=== PATIENT | female | born 1955 | race Caucasian/White ===

== ENCOUNTER 2017-09-02 14:51 | Emergency (ER) | payer BC ==
[2017-09-02 14:59] VITALS: RESP 18; TEMP 97.8
--- NOTE | 2017-09-02 15:49 | XR ---
EXAMINATION TYPE: XR Hip RT and AP Pelvis DATE OF EXAM: 09/02/2017 COMPARISON: NONE HISTORY: Right hip pain TECHNIQUE: A single AP view of the pelvis is obtained. Two views of the right hip are obtained. FINDINGS: The pelvic ring is intact. Proximal right femur and hip joint are intact. Sacroiliac joints appear normal. IMPRESSION: Negative pelvis and right hip exam..
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
[2017-09-02 16:14] VITALS: BP 152/78; PULSE 67
== END 2017-09-02 16:14 | disposition home or self-care (01) ==
LOC: EC 14:51
DX: M25.551 Pain in right hip (principal); R51 Headache; E78.5 Hyperlipidemia, unspecified; I10 Essential (primary) hypertension; F32.9 Major depressive disorder, single episode, unspecified; Z98.890 Other specified postprocedural states; Z86.14 Personal history of Methicillin resistant Staphylococcus aureus infection; Z87.891 Personal history of nicotine dependence; Z79.1 Long term (current) use of non-steroidal anti-inflammatories (NSAID); Z79.899 Other long term (current) drug therapy; W01.198A Fall on same level from slipping, tripping and stumbling with subsequent striking against other object, initial encounter
CPT/HCPCS: 73502; 99283

== ENCOUNTER → 2017-09-11 | Outpatient (CLI) | payer BC ==
--- NOTE | 2017-09-11 12:32 | XR ---
Lumbosacral spine HISTORY: Trauma, low back pain 5 views of the lumbosacral spine CT 01/20/2011 There is depression deformity of the superior endplate of L3, loss of height of approximately 25% whi ch appears chronic. Bone mineralization is reduced. Loss of disc height present L4-5 with associated vacuum phenomenon. There is multilevel spondylosis. Sclerosis present in the posterior elements of th e lumbar spine. No evident spondylolysis or spondylolisthesis. Mild levoscoliosis is centered at L2. Surgical clips present in the pelvis. IMPRESSION: Osteoporotic compression fractures superior endplate of L3 thought likely to be chronic. Degenerative disc disease, facet arthropathy, osteopenia, scoliosis. MRI may be of benefit.
== END | disposition home or self-care (01) ==
LOC: RADXRYALE 10:54
PROVIDERS: ATTEND Internal Medicine
DX: M51.37 Other intervertebral disc degeneration, lumbosacral region (principal); M46.86 Other specified inflammatory spondylopathies, lumbar region; M85.88 Other specified disorders of bone density and structure, other site; M41.9 Scoliosis, unspecified
CPT/HCPCS: 72110

== ENCOUNTER 2017-11-25 14:05 | Emergency (ER) | payer BC ==
[2017-11-25 14:11] LABS: Glucose,Whole Blood 215 mg/dL (75-99)
[2017-11-25 14:13] VITALS: RESP 18
[2017-11-25] MEDS ORDERED: ALBUTEROL NEBULIZED 2.5 MG/3 ML INHALATION STA (14:47)
[2017-11-25 14:59] LABS: Appearance,Urine Clear (Clear); Bilirubin,Urine Negative (Negative); Blood,Urine Negative (Negative); Color,Urine Light Yellow; Glucose,Urine (UA) 4+ (Negative); Leukocyte Esterase,Urine Negative (Negative); Nitrite,Urine Negative (Negative); PH, Urine 6.5 (5.0-8.0); Protein,Urine Negative (Negative); Specific Gravity,Urine 1.003 (1.001-1.035); Urobilinogen,Urine <2.0 mg/dL (<2.0)
[2017-11-25 15:05] LABS: Ketones,Urine 2+ (Negative)
[2017-11-25 15:07] LABS: Basophils % (A) 1 %; Eosinophils # (A) 0.2 k/uL (0-0.7); Eosinophils % (A) 3 %; HCT 40.8 % (34.0-46.0); HGB 13.4 gm/dL (11.4-16.0); Lymphocytes # (A) 1.2 k/uL (1.0-4.8); Lymphocytes % (A) 18 %; MCH 28.9 pg (25.0-35.0); MCHC 32.8 g/dL (31.0-37.0); MCV 88.1 fL (80.0-100.0); Mean Platelet Volume 7.2; Monocytes # (A) 0.3 k/uL (0-1.0); Monocytes % (A) 4 %; Neutrophils # (A) 4.7 k/uL (1.3-7.7); Neutrophils % (A) 72 %; Platelet Count 247 k/uL (150-450); RBC 4.63 m/uL (3.80-5.40); WBC 6.6 k/uL (3.8-10.6)
[2017-11-25] MEDS ORDERED: SODIUM CHLORIDE 0.9% 1,000 ML IV ONE (15:07)
[2017-11-25 15:10] LABS: Anion Gap 10 mmol/L; Blood Urea Nitrogen 5 mg/dL (7-17); Calcium 9.9 mg/dL (8.4-10.2); Carbon Dioxide 25 mmol/L (22-30); Chloride 99 mmol/L (98-107); Glucose 235 mg/dL (74-99); Potassium 4.8 mmol/L (3.5-5.1); Sodium 134 mmol/L (137-145)
[2017-11-25] MEDS ORDERED: SODIUM CHLORIDE 0.9% 1,000 ML IV SCH (15:15)
--- NOTE | 2017-11-25 16:03 | XR ---
EXAMINATION TYPE: XR chest 2V DATE OF EXAM: 11/25/2017 COMPARISON: 02/12/2016 HISTORY: Cough TECHNIQUE: Frontal and lateral views of the chest are obtained. FINDINGS: There is no heart failure nor confluent pneumonic infiltrate. Costophrenic angles are ashok r. There are chest leads. Bony thorax is intact. IMPRESSION: No active cardiopulmonary disease. No change. Normal heart.
[2017-11-25] MEDS ORDERED: MAG HYDROX/AL HYDROX/SIMETH 30 ML, HYOSCYAMINE ELIXIR 10 ML, CIMETIDINE HCL 300 MG, LID... PO STA ×4 (16:06)
[2017-11-25 16:08] LABS: Glucose,Whole Blood 215 mg/dL (75-99)
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
[2017-11-25] MEDS ORDERED: LABETALOL 5 MG/ML VIAL MDV IVP STA (16:38)
[2017-11-25] MEDS ORDERED: LEVOFLOXACIN 500 MG TAB PO STA (17:01)
[2017-11-25 17:45] VITALS: BP 187/77; PULSE 80
[2017-11-25 17:48] VITALS: TEMP 97.7
== END 2017-11-25 17:47 | disposition home or self-care (01) ==
LOC: EC 14:05
DX: J40 Bronchitis, not specified as acute or chronic (principal); E78.5 Hyperlipidemia, unspecified; I10 Essential (primary) hypertension; F32.9 Major depressive disorder, single episode, unspecified; Z87.891 Personal history of nicotine dependence; Z86.14 Personal history of Methicillin resistant Staphylococcus aureus infection; Z83.3 Family history of diabetes mellitus; Z79.4 Long term (current) use of insulin; Z79.899 Other long term (current) drug therapy
CPT/HCPCS: 36415; 71020; 80048; 81003; 82009; 85025; 94640; 96361; 96374; 99284

== ENCOUNTER 2018-06-14 13:16 | Emergency (ER) | payer BC ==
[2018-06-14 13:23] VITALS: RESP 18
[2018-06-14] MEDS ORDERED: SODIUM CHLORIDE 0.9% 1,000 ML IV ONE (13:56)
[2018-06-14] MEDS ORDERED: ceFAZolin IN SWFI 2 GM/20 ML SYRINGE IVP STA (13:56)
[2018-06-14] MEDS ORDERED: SODIUM CHLORIDE 0.9% 1,000 ML IV SCH (14:00)
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
[2018-06-14 15:19] LABS: Basophils % (A) 1 %; Eosinophils # (A) 0.2 k/uL (0-0.7); Eosinophils % (A) 7 %; HCT 32.7 % (34.0-46.0); Lymphocytes % (A) 29 %; MCHC 33.6 g/dL (31.0-37.0); MCV 86.4 fL (80.0-100.0); Mean Platelet Volume 7.1; Monocytes # (A) 0.2 k/uL (0-1.0); Monocytes % (A) 6 %; Neutrophils # (A) 1.9 k/uL (1.3-7.7); Neutrophils % (A) 57 %; Platelet Count 169 k/uL (150-450); RBC 3.78 m/uL (3.80-5.40); RDW 13.2 % (11.5-15.5); WBC 3.4 k/uL (3.8-10.6)
[2018-06-14 15:21] LABS: ALT 29 U/L (9-52); AST 26 U/L (14-36); Alkaline Phosphatase 105 U/L (38-126); Anion Gap 7 mmol/L; Blood Urea Nitrogen 5 mg/dL (7-17); Calcium 9.5 mg/dL (8.4-10.2); Carbon Dioxide 27 mmol/L (22-30); Chloride 101 mmol/L (98-107); Glucose 117 mg/dL (74-99); Sodium 135 mmol/L (137-145); Total Bilirubin 0.6 mg/dL (0.2-1.3); Total Protein 6.7 g/dL (6.3-8.2)
[2018-06-14 15:28] LABS: Potassium 4.6 mmol/L (3.5-5.1)
[2018-06-14] MEDS ORDERED: SULFAMETH-TMP DS STARTER PACK 2 TAB BTL PO STA (15:53)
[2018-06-14 15:55] VITALS: BP 141/67
[2018-06-14] MEDS ORDERED: ACET/COD 300 MG/30 MG STARTER PACK 6 TAB BTL PO STA (16:13)
[2018-06-14 16:39] VITALS: PULSE 70; TEMP 98.1
== END 2018-06-14 16:39 | disposition home or self-care (01) ==
LOC: EC 13:16
DX: L03.311 Cellulitis of abdominal wall (principal); J45.909 Unspecified asthma, uncomplicated; E11.9 Type 2 diabetes mellitus without complications; E78.5 Hyperlipidemia, unspecified; I10 Essential (primary) hypertension; G43.909 Migraine, unspecified, not intractable, without status migrainosus; F32.9 Major depressive disorder, single episode, unspecified; Z86.14 Personal history of Methicillin resistant Staphylococcus aureus infection; Z87.891 Personal history of nicotine dependence; Z79.4 Long term (current) use of insulin; Z79.82 Long term (current) use of aspirin; Z79.899 Other long term (current) drug therapy
CPT/HCPCS: 36415; 80053; 85025; 87040; 87070; 87205; 87077; 87186; 99284; 96374; 96361 ×2; J0690

== ENCOUNTER 2021-11-30 23:17 | Emergency (ER) | payer BC, MEDICARE ==
[2021-11-30 23:42] LABS: Glucose,Whole Blood 77 mg/dL (75-99)
[2021-11-30 23:47] VITALS: BP 165/81; RESP 20
[2021-12-01 00:11] LABS: Glucose,Whole Blood 97 mg/dL (75-99)
[2021-12-01 00:49] LABS: Glucose,Whole Blood 221 mg/dL (75-99)
[2021-12-01 00:51] LABS: Basophils % (A) 1 %; Eosinophils # (A) 0.2 k/uL (0-0.7); Eosinophils % (A) 3 %; HCT 39.2 % (34.0-46.0); HGB 12.9 gm/dL (11.4-16.0); Lymphocytes # (A) 1.3 k/uL (1.0-4.8); Lymphocytes % (A) 21 %; MCH 30.5 pg (25.0-35.0); MCV 92.2 fL (80.0-100.0); Mean Platelet Volume 7.6; Monocytes # (A) 0.4 k/uL (0-1.0); Monocytes % (A) 7 %; Neutrophils % (A) 67 %; Platelet Count 196 k/uL (150-450); RBC 4.25 m/uL (3.80-5.40); RDW 13.2 % (11.5-15.5); WBC 6.1 k/uL (3.8-10.6)
[2021-12-01 01:13] LABS: ALT 29 U/L (4-34); AST 32 U/L (14-36); African American GFR (CKD) >90 (>60 ml/min/1.73 sqM); Albumin 3.8 g/dL (3.5-5.0); Alkaline Phosphatase 83 U/L (38-126); Anion Gap 11 mmol/L; Blood Urea Nitrogen 8 mg/dL (7-17); Carbon Dioxide 21 mmol/L (22-30); Chloride 99 mmol/L (98-107); Glucose 73 mg/dL (74-99); Non-African American GFR(CKD) >90 (>60 ml/min/1.73 sqM); Potassium 3.9 mmol/L (3.5-5.1); Sodium 131 mmol/L (137-145); Total Bilirubin 0.6 mg/dL (0.2-1.3); Total Protein 6.2 g/dL (6.3-8.2)
[2021-12-01 01:26] LABS: Glucose,Whole Blood 300 mg/dL (75-99)
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
[2021-12-01 02:42] VITALS: PULSE 77; TEMP 98
== END 2021-12-01 02:08 | disposition home or self-care (01) ==
LOC: EC 23:17
DX: E11.649 Type 2 diabetes mellitus with hypoglycemia without coma (principal); J45.909 Unspecified asthma, uncomplicated; E78.5 Hyperlipidemia, unspecified; I10 Essential (primary) hypertension; F32.A Depression, unspecified; Z79.4 Long term (current) use of insulin; Z79.82 Long term (current) use of aspirin; Z90.89 Acquired absence of other organs; Z20.822 Contact with and (suspected) exposure to COVID-19
CPT/HCPCS: 36415; 80053; 85025; 87635; 99285

== ENCOUNTER → 2022-09-13 | Outpatient (CLI) | payer MEDICARE ==
--- NOTE | 2022-09-13 16:02 | XR ---
EXAMINATION TYPE: XR chest 2V DATE OF EXAM: 09/13/2022 3:58 PM COMPARISON: Chest radiographs from 11/25/2017. TECHNIQUE: XR chest 2V Frontal and lateral views of the chest. CLINICAL INDICATION:Female, 67 years old with history of Z01.818 PRE SURGICAL; FINDINGS: Lungs/Pleura: There is no evidence of pleural effusion, focal consolidation, or pneumothorax. Pulmonary vascularity: Unremarkable. Heart/mediastinum: Cardiomediastinal silhouette is unremarkable. Musculoskeletal: No acute osseous pathology. Dextrocurvature of the thoracic spine. IMPRESSION: No acute cardiopulmonary disease/process.
[2022-09-13 23:55] LABS: ALT 18 U/L (8-44); AST 16 U/L (13-35); African American GFR (CKD) 103.9 (60.0-200.0); Albumin 4.3 g/dL (3.8-4.9); Albumin/Globulin Ratio 1.95 (1.60-3.17); Alkaline Phosphatase 87 U/L (41-126); BUN/Creat Ratio 10.43 Ratio (12.00-20.00); Blood Urea Nitrogen 7.3 mg/dL (9.0-27.0); Calcium 8.9 mg/dL (8.7-10.3); Carbon Dioxide 28.1 mmol/L (20.0-27.5); Chloride 99 mmol/L (96-109); Globulin 2.2 g/dL (1.6-3.3); Glucose 184 mg/dL (70-110); Non-African American GFR(CKD) 89.7 (60.0-200.0); Sodium 135 mmol/L (135-145); Total Bilirubin <0.15 mg/dL (0.30-1.20); Total Protein 6.5 g/dL (6.2-8.2)
== END | disposition home or self-care (01) ==
LOC: LABPAT 15:03
PROVIDERS: ATTEND Orthopaedic Surgery Orthopaedic Surgery of the Spine
DX: Z01.818 Encounter for other preprocedural examination (principal); M41.9 Scoliosis, unspecified
CPT/HCPCS: 71046; 80053; 87070; 93005

== ENCOUNTER → 2022-09-29 | Outpatient (CLI) | payer MEDICARE | END | disposition home or self-care (01) | LOC: LABPAT 12:34 | PROVIDERS: ATTEND Orthopaedic Surgery Orthopaedic Surgery of the Spine | DX: Z53.9 Procedure and treatment not carried out, unspecified reason (principal) ==

== ENCOUNTER 2022-10-04 06:07 | Observation (INO) | payer MEDICARE ==
[2022-09-28 10:56] VITALS: BMI 35.9
[2022-09-29 13:31] LABS: INR 0.9 (<1.2); Partial Thromboplastin Time 22.7 sec (22.0-30.0); Prothrombin Time 9.6 sec (9.0-12.0)
[2022-09-29 14:07] LABS: Basophils # (A) 0.1 k/uL (0-0.2); Basophils % (A) 1 %; Eosinophils # (A) 0.3 k/uL (0-0.7); Eosinophils % (A) 6 %; HCT 40.7 % (34.0-46.0); HGB 13.3 gm/dL (11.4-16.0); Lymphocytes # (A) 1.4 k/uL (1.0-4.8); Lymphocytes % (A) 25 %; MCH 29.4 pg (25.0-35.0); MCHC 32.7 g/dL (31.0-37.0); MCV 89.9 fL (80.0-100.0); Mean Platelet Volume 7.9; Monocytes # (A) 0.3 k/uL (0-1.0); Monocytes % (A) 6 %; Neutrophils # (A) 3.3 k/uL (1.3-7.7); Neutrophils % (A) 61 %; Platelet Count 252 k/uL (150-450); RBC 4.53 m/uL (3.80-5.40); RDW 13.1 % (11.5-15.5); WBC 5.5 k/uL (3.8-10.6)
[2022-09-29 17:54] LABS: Appearance,Urine Clear (Clear); Bilirubin,Urine Negative (Negative); Blood,Urine Negative (Negative); Color,Urine Yellow (Yellow); Ketones,Urine Negative (Negative); Nitrite,Urine Negative (Negative); PH, Urine 7.5 (5.0-8.0); Specific Gravity,Urine 1.004 (1.001-1.030); Urobilinogen,Urine 0.2 (0.2,1.0)
[2022-09-29 18:00] LABS: Bacteria,Urine None Seen /HPF (None Seen)
[~2022-10-04 06:07] MED LIST: LIDOCAINE 1% (10MG/ML) FOR IV START INTRADERMA PRN; ONDANSETRON 4 MG/2 ML VIAL IVP ONE; ceFAZolin 1,000 MG in SODIUM CHLORIDE 0.9% IRRIGATIO 1,000 ML IRRIGATION PRN
[2022-10-04] MEDS: LACTATED RINGERS 1,000 ML IV SCH (07:10)
[2022-10-04 07:13] LABS: Glucose,Whole Blood 207 mg/dL (70-110)
[2022-10-04] MEDS ORDERED: PROPOFOL 10 MG/ML 20 ML VIAL IV ONE (07:32)
[2022-10-04] MEDS ORDERED: fentaNYL (PF) 50 MCG/ML 2 ML AMP ONE (07:32)
[2022-10-04] MEDS ORDERED: KETAMINE 10 MG/ML 20 ML VIAL ONE (07:32)
[2022-10-04] MEDS ORDERED: ROCURONIUM 10 MG/ML (5 ML VIAL) IV ONE (07:32)
[2022-10-04] MEDS ORDERED: MIDAZOLAM 2 MG/2 ML VIAL ONE (07:32)
[2022-10-04] MEDS ORDERED: LIDOCAINE 2% INJ 20 MG/ML (2 ML VIAL) ONE (07:32)
[2022-10-04] MEDS ORDERED: SUCCINYLCHOLINE CHLORIDE 200 MG/10 ML VIAL IV ONE (07:32)
[2022-10-04] MEDS ORDERED: ePHEDrine 50 MG/ML 1 ML VIAL ONE (07:32)
[2022-10-04] MEDS ORDERED: HYDROmorphone (PF) 1 MG/ML ONE (07:32)
[2022-10-04] MEDS ORDERED: PHENYLEPHRINE-0.9% NACL SYG 1,000 MCG/10 ML SYRINGE ONE (07:32)
[2022-10-04] MEDS ORDERED: GLYCOPYRROLATE 0.2 MG/ML 2 ML VIAL ONE (07:32)
[2022-10-04] MEDS ORDERED: NEOSTIGMINE 1 MG/ML 10 ML VIAL ONE (07:32)
[2022-10-04] MEDS ORDERED: LIDOCAINE 0.5%-EPI 1:200,000 50 ML VIAL SQ ONE (07:37)
[2022-10-04] MEDS ORDERED: THROMBIN (BOVINE) 5,000 UNIT VIAL TOPICAL ONE (07:37)
[2022-10-04] MEDS ORDERED: GELATIN SPONGE,ABSORB (LARGE) 1 EACH SPONGE TOPICAL ONE (07:37)
[2022-10-04] MEDS ORDERED: LACTATED RINGERS 1,000 ML IV ONE (09:00)
[2022-10-04] MEDS ORDERED: bisacodyL 10 MG SUPP RECTAL PRN (11:35)
[2022-10-04] MEDS ORDERED: ONDANSETRON 4 MG/2 ML VIAL IVP PRN (11:35)
[2022-10-04] MEDS ORDERED: NA PHOS,M-B/NA PHOS,DI-BA 133 ML ENEMA RECTAL PRN (11:35)
[2022-10-04] MEDS ORDERED: BENZOCAINE/MENTHOL LOZENG 1 EACH LOZENGE MUCOUS MEM PRN (11:35)
[2022-10-04] MEDS ORDERED: MAGNESIUM HYDROXIDE 2,400 MG/10 ML CUP PO PRN (11:35)
--- NOTE | 2022-10-04 11:45 | P.OP ---
Date of Procedure: 10/04/22 Preoperative Diagnosis: Degenerative scoliosis, severe spinal stenosis L3 4 L4 5, degenerative disc disease, facet arthritis, neurogenic claudication, lower extremity radiculopathy Postoperative Diagnosis: Same Anesthesia: GETA Pathology: none sent Condition: stable Disposition: PACU Description of Procedure: DESCRIPTION OF PROCEDURE(S): BRIEF OPERATIVE NOTE Preoperative Diagnosis: Degenerative scoliosis, severe spinal stenosis L3 4 L4 5, degenerative disc disease, facet arthritis, neurogenic claudication, lower extremity radiculopathy Postoperative Diagnosis: Same Procedure: Laminectomy and decompression L3 [address] navigation aided Minimally invasive Posterior lateral decompression and facet fusion L3 4 L4 5 Minimally invasive Transforaminal lumbar interbody fusion for a 360 fusion L3 4 L4 5 Use of cement augmentation through fenestrated screws at L3-L4 and L4 5 for improved screw fixation Discectomy for decompression L3 4 L4 5 Placement of interbody graft L3 4 L4 5 Use of computer navigation for fusion L3 4 and 5 Local autogenous bone grafting Aspiration of bone marrow from the vertebral body pedicle L3 and left Use of bone graft extenders Surgeon: Dr. Rogel Ela Teacher: Vince ANGUIANO who is present throughout the entire the case persistence during positioning, dissection, exposure, visualization, and all crucial elements of the case as well as closure. Anesthesia: General anesthesia per Estimated blood loss: Approximately 400 mL, with 225 given back through Cell Saver Complications: None apparent Components implanted: K2M minimally invasive [place] pedicle screw system withscrews measuring 6.5 mm in diameter to rods one Clark interbody cage and 1 peek interbody cage with 10 mL of osteo amp bio4 bone graft substitute and 30 mL of the BX bone fibers to supplement the local autogenous bone graft and bone marrow aspirate Disposition: To recovery room in good stable condition. OPERATIVE INDICATIONS The patient has had severe issues at their lower extremity in her lower back over the past several years with significant worsening over the past several months. Over the past few months the patient had pain at their back and their lower extremities. The patient had been having worsening pain with her degenerative scoliosis and severe disc degeneration and severe spinal stenosis with neurogenic claudication. The patient is having severe radicular symptoms at their lower extremity with weakness. The patient is having significant pain in their back. They are unable to obtain any comfort. We did aggressive conservative treatment with medications therapy and interventional pain management however thery were not having any relief. The patient has been through conservative treatment. We discussed various treatment options including surgery, and the patient wishes to proceed with surgery We discussed the risk, patient's alternatives and benefits of surgery including but not limited to, risk of bleeding risk of infection, risk of need for further surgery, risk of decreased, loss of motion, muscle function, malunion nonunion, hardware failure, nerve damage, paralysis, heart attack, blindness and . They understood issues with the current pandemic and the possibility of exposure. OPERATIVE SUMMARY After discussing all the risks, patient alternatives and benefits at length, the patient elected to proceed with surgical intervention, signed informed consent, and presented for their procedure. The patient was seen and examined in the preoperative holding area and the surgical site was marked. The patient was given antibiotics and brought to the operating room. The patient was sedated and intubated by anesthesia in standard fashion. The patient was positioned on to the operating room table in a prone position on the appropriate frame which was well-padded and well molded. We were careful to pad any bony prominences and pressure points. We were careful to maintain the patient's cervical spine and good neutral alignment and position throughout. The patient was prepped and draped in a normal standard fashion. An appropriate timeout and keystone protocol performed. We were able to proceed with the surgery. The local wound area was infiltrated with local anesthetic. Over the right iliac crest I was able to make small stab incisions and establish a guidepin screw fixation to the iliac crest 2. I was able place the computer referencing device over the guidepins to establish an appropriate reference point for the Ziem CT navigation. We then were able to place patient in an appropriate drape and do a navigation spin for visualization and 3-D reconstruction of the lumbar spine. I was able utilize C-arm guidance and navigation to establish appropriate position over the pedicles bilaterally at t he appropriate levels at L3 L4 L5. With the appropriate levels confirmed was able to make small incisions over the appropriate pedicle sites bilaterally. Utilizing the computer navigation device I was able to establish bony landmarks at the right iliac crest for a bony reference point for the navigation device. I was able to establish a Jamshidi needle over the lateral aspect of the pedicle and advanced the trocar into the pedicle being careful not to breech superiorly inferiorly medially or laterally using computer navigation device. Position was confirmed regularly with AP and lateral images on C-arm and with the computer navigation device at the appropriate levels bilaterally. I was able to establish the trocar into the pedicle appropriately into the posterior aspect of the vertebral body bilaterally at the appropriate levels. This was done at each of the pedicle positions and each of the vertebrae. At the superior vertebrae I was able to take approximately 25 mL of bone aspiration for use later in the case to supplement the allograft and autograft bone. I was able place the guidewire into the trocar and into the vertebral body appropriately under C-arm guidance. Of note at each of the levels the bone was found to be significant way soft and is worried about significant osteopenia and screw fixation. With this I felt that we would have better screw purchase and screw fixation with using fenestrated screws with bony cement out mentation. Dissection was taken down over the wire to the appropriate starting position for the screw placed. The appropriate length screw was chosen, the fenestrated screw was then threaded over the guidewire and screwed appropriately into the pedicle and vertebral body under C-arm guidance in excellent alignment and position with good bony purchase. This is done at each of the screw sites at the appropriate levels at L3-L4 and L5. Their position was checked and found to have excellent position at L3-L4 and L5 and there were seated well in the appropriate alignment. With his accomplish we then prepared cement mixture and 12 was prepared appropriately we threaded the appropriate insertion devices and we were able to push cement through the screws through the fenestrations and into the vertebral bodies at L3 L4 L5 bilaterally. The cement was well contained within the vertebral bodies and gave excellent fixation of the screws. This was done with C-arm guidance. With the screws intact I extended the incision to connect the screw hole sites on the most symptomatic side on the right. I dissected down to establish access over the pars and lamina to the base of the spinous process. I was able to expose the facet joint. The capsule the facet was taken down and showed some facet arthrosis at the joint. I was able to use a combination of curettes and Kerrison rongeurs and a high-speed drill to take down the facet joint and do a facetectomy. I was able get excellent foraminal decompression and central decompression with undermining across midline to perform a laminectomy centrally and contralaterally. I started at L4 5 and then moved L3 4. I was able get good central decompression. There had been severe central and bilateral foraminal stenosis which was remedied with decompression. The ligamentum flavum was taken down to further decompress centrally and at bilateral neural foramen. I was able to expose the disc space and visualize the traversing nerve root. Note was made of some disc protrusion and disc herniation that was abutting the traversing nerve root at the level causing further compression of the nerve root. I was able to establish a annulotomy at the appropriate level protecting soft tissue and neural structures. Note was made of some disc desiccation at the disc both at L4 5 and L3 4 with severe disc loss.. I performed a complete discectomy with accommodation of curettes and rasps and scrapers. I was able get good endplate preparation at the disc space. I sized for the appropriate size interbody spacer protecting the soft tissue and neural structures. The wound was copiously irrigated and suctioned dry. There is no evidence of any dural tear or leak. I was able to pack the disc space with local autogenous bone graft as well as a small amount of bone graft which was also placed into the interbody cage itself. Protecting the soft tissue structures and neural structures I was able place the interbody cage in good alignment and good position with good fit and fill at the interbody space. Position was confirmed with C-arm guidance. Good hemostasis maintained. There is no evidence of any dural tear or leak. The wound was irrigated and suctioned dry. With the hardware intact, intraoperative C-arm imaging was again taken which showed good alignment and position of the hardware at the appropriate levels at L3 4 and L4 5. We were then able to measure, contour and place the rods and appropriate hardware bilaterally. I was able to place capcrews, tighten them down, and torque them with the torque screwdriver appropriately. With this intact I was able to place the local autogenous bone graft with additional bone graft enhancer as necessary into the posterior lateral gutters over the decorticated transverse processes and facet joints on the contralateral side. The remainder of the bone graft was placed over the facet joint on the contralateral side after taking down the facet joint capsule. With the bone graft intact, a stable construct, and good decompression at the appropriate levels, we were able to proceed with closure. Good hemostasis was maintained. There is no evidence of dural tear or leak. The fascia was closed for a watertight closure. he subcuticular tissue was closed with absorbable suture. The wound was cleaned and dried and dressed with the appropriate dressing. The drapes were broken down. The patient was gently rolled back onto their hospital bed being careful to maintain their cervical spine and good neutral alignment and position. They were woken up by anesthesia, extubated, and brought to the recovery room in good stable condition. The patient will be admitted to the hospital for appropriate postoperative care, medical management and monitoring. We will continue to follow them closely about the postoperative course.
[2022-10-04] MEDS ORDERED: SODIUM CHLORIDE 0.9% 1,000 ML IV ONE ×2 (11:52)
[2022-10-04] MEDS: HYDROmorphone 0.5 MG/0.5 ML SYRINGE IVP PRN ×6 (12:02→21:39)
--- NOTE | 2022-10-04 13:12 | FL ---
EXAMINATION TYPE: FL guidance operating room DATE OF EXAM: 10/04/2022 HISTORY: Fluoroscopy time 28 seconds of fluoroscopy provided. IMPRESSION: 1. Fluoroscopy time.
[2022-10-04] MEDS: HYDROcodone/APAP 5-325MG 1 EACH TAB PO PRN (14:22)
[2022-10-04] MEDS: SODIUM CHLORIDE 0.9% 1,000 ML IV SCH (14:26)
[2022-10-04] MEDS: INSULIN LISPRO (For Pump) 100 UNIT/ML VIAL SQ-PUMP SCH ×2 (18:24→21:49)
[2022-10-04] MEDS: GABAPENTIN 300 MG CAP PO SCH (21:38)
[2022-10-04] MEDS: ALPRAZolam 0.5 MG TAB PO SCH (21:38)
[2022-10-04] MEDS: TOPIRAMATE 25 MG TAB PO SCH (21:38)
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
[2022-10-05] MEDS: SODIUM CHLORIDE 0.9% 1,000 ML IV SCH ×2 (01:12→07:51)
[2022-10-05] MEDS: HYDROmorphone 0.5 MG/0.5 ML SYRINGE IVP PRN (02:53)
[2022-10-05] MEDS: LACTATED RINGERS 1,000 ML IV SCH (04:24)
[2022-10-05] MEDS: HYDROcodone/APAP 5-325MG 1 EACH TAB PO PRN ×3 (05:52→18:34)
[2022-10-05] MEDS: HYDROmorphone 1 MG/ML 1 ML SYRINGE IVP PRN ×5 (07:47→23:58)
[2022-10-05] MEDS: SENNOSIDES-DOCUSATE SODIUM 1 EACH TAB PO SCH (07:50)
[2022-10-05] MEDS: ATORVASTATIN 10 MG TAB PO SCH (07:50)
[2022-10-05] MEDS: lisinopriL 20 MG TAB PO SCH (07:50)
--- NOTE | 2022-10-05 09:48 | P.PN ---
Progress Note - Text Progress Note Date: 10/05/22 Postoperative day #1 Patient is seen and examined today at bedside. The patient has some pain around the surgical site as expected. Pain is being controlled with medication. She was able get up out of the bed with assistance. She feels her legs are doing well but they still feel heavy. Physical Exam Afebrile with stable vital signs Abdomen is soft nontender. Chest has good excursion deep and space expiration The incision site is clean dry and intact. No erythema there is no purulence. There is drainage on the left dressing but it seems to be stable without expansion. There is no leakage Extremities have not had neurologic change from prior to surgery. She has sustained dorsal flexion plantar flexion and EHL intact Calves and thighs were soft nontender without evidence of DVT. Assessment/Plan Postoperative day #1 status post minimally invasive decompression fusion L3 4 L4 5 for discharge degenerative scoliosis with severe stenosis and lower extremity radiculopathy with neurogenic claudication Patient is progressing as expected from the surgery. She is moving somewhat slowly thus far which is to be expected but she has been able to get up to a chair. We will have to discontinue her Trevizo today and she understands that she will need to mobilize more. We will continue to increase the patient's mobilization with therapy. She is doing well in terms of her pain control thus far and should continue to make steady progress. She'll likely be in the hospital for another 2 nights. We will continue pain control with oral or IV medications. We'll continue to follow patient closely.
[2022-10-05] MEDS: CYCLOBENZAPRINE 10 MG TAB PO PRN ×2 (10:14→18:35)
[2022-10-05 10:59] LABS: Basophils # (A) 0.02 X 10*3/uL (0.00-0.10); Basophils % (A) 0.2 %; Eosinophils # (A) 0 X 10*3/uL (0.04-0.35); Eosinophils % (A) 0 %; HGB 10.3 g/dL (12.0-15.0); Immature Grans, Automated 0.4 %; Lymphocytes # (A) 0.71 X 10*3/uL (0.90-5.00); Lymphocytes % (A) 7.4 %; MCH 28.5 pg (27.0-32.0); MCHC 32.2 g/dL (32.0-37.0); MCV 88.6 fL (80.0-97.0); Mean Platelet Volume 10.1 fL (9.5-12.2); Monocytes # (A) 0.92 X 10*3/uL (0.20-1.00); Monocytes % (A) 9.6 %; NRBC Per 100 WBC 0 /100 WBCS (0.0-0.0); Neutrophils # (A) 7.88 X 10*3/uL (1.80-7.70); Neutrophils % (A) 82.4 %; Platelet Count 224 X 10*3/uL (140-440); RBC 3.61 X 10*6/uL (4.10-5.20); RDW 13.7 % (11.5-14.5); WBC 9.57 X 10*3/uL (4.50-10.00)
[2022-10-05 11:22] LABS: African American GFR (CKD) 107.3 (60.0-200.0); Anion Gap 10.3 mmol/L (10.00-18.00); BUN/Creat Ratio 9.84 Ratio (12.00-20.00); Blood Urea Nitrogen 6.3 mg/dL (9.0-27.0); Calcium 8.8 mg/dL (8.7-10.3); Carbon Dioxide 23.8 mmol/L (20.0-27.5); Non-African American GFR(CKD) 92.6 (60.0-200.0)
[2022-10-05] MEDS: INSULIN LISPRO (For Pump) 100 UNIT/ML VIAL SQ-PUMP SCH ×3 (12:56→20:32)
[2022-10-05] MEDS: GABAPENTIN 300 MG CAP PO SCH (20:32)
[2022-10-05] MEDS: TOPIRAMATE 25 MG TAB PO SCH (20:33)
[2022-10-05] MEDS: ALPRAZolam 0.5 MG TAB PO SCH (20:33)
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
[2022-10-06] MEDS: CYCLOBENZAPRINE 10 MG TAB PO PRN ×3 (03:52→19:59)
[2022-10-06] MEDS: HYDROcodone/APAP 5-325MG 1 EACH TAB PO PRN ×4 (03:52→21:31)
[2022-10-06] MEDS: SODIUM CHLORIDE 0.9% 1,000 ML IV SCH ×2 (04:39→18:26)
[2022-10-06] MEDS: LACTATED RINGERS 1,000 ML IV SCH (06:34)
[2022-10-06] MEDS: lisinopriL 20 MG TAB PO SCH (08:34)
[2022-10-06] MEDS: SENNOSIDES-DOCUSATE SODIUM 1 EACH TAB PO SCH (08:35)
[2022-10-06] MEDS: ATORVASTATIN 10 MG TAB PO SCH (08:35)
[2022-10-06 08:41] LABS: Basophils # (A) 0.04 X 10*3/uL (0.00-0.10); Basophils % (A) 0.4 %; Eosinophils # (A) 0.06 X 10*3/uL (0.04-0.35); Eosinophils % (A) 0.6 %; HCT 30.1 % (37.2-46.3); HGB 9.8 g/dL (12.0-15.0); Immature Grans, Automated 0.4 %; Lymphocytes # (A) 1.06 X 10*3/uL (0.90-5.00); Lymphocytes % (A) 10.3 %; MCH 28.8 pg (27.0-32.0); MCHC 32.6 g/dL (32.0-37.0); MCV 88.5 fL (80.0-97.0); Mean Platelet Volume 9.9 fL (9.5-12.2); Monocytes # (A) 0.82 X 10*3/uL (0.20-1.00); Monocytes % (A) 7.9 %; NRBC Per 100 WBC 0 /100 WBCS (0.0-0.0); Neutrophils # (A) 8.32 X 10*3/uL (1.80-7.70); Neutrophils % (A) 80.4 %; Platelet Count 205 X 10*3/uL (140-440); RDW 13.6 % (11.5-14.5); WBC 10.34 X 10*3/uL (4.50-10.00)
--- NOTE | 2022-10-06 08:42 | P.PN ---
Progress Note - Text Progress Note Date: 10/06/22 Orthopedic Spine History of present illness: Patient is a pleasant 67-year-old female who is seen and examined at the bedside following posterior lateral decompression and fusion performed Sunday. She was having significant pain postoperatively and continues to have some pain, but her pain has been improving. She has been receiving IV Dilaudid less but does require frequent oral medications for pain control. She does have some pain in her lumbar spine and also some increased leg spasms during ambulation. She has been able to ambulate to the restroom and assistance of a walker. She is urinating frequently and without difficulty. She denies any abdominal pain or distention. She is passing gas. She currently denies any specific lower extremity weakness or radiculopathy bilaterally. She is hoping to improve over the next 1-2 days so hopefully she can be discharged home. She requests medications to be sent to the [facility] pharmacy located within [facility]. Currently does not complain of nausea, vomiting, fever, or chi lls. Patient is eating without difficulty. Patient continues to be seen in exam by medicine for her other medical diagnoses including hypertension, hyperlipidemia, and type 1 diabetes. Physical Exam Lumbar Fusion: Status post surgical day number 2 Patient is awake, alert, and oriented 3 Vital signs stable Good chest excursion with deep inspiration and expiration Abdomen soft nontender Dorsiflexion, plantarflexion, and extensor hallucis longus positive sustained bilaterally No signs or symptoms of DVT; no calf pain; pneumatic cuffs not currently intact bilateral lower extremities Optifoam dressings remain intact over the lumbar spine and right iliac crest Neurovascularly intact bilaterally lower extremities Assessment: Status post L3-4 and L4-5 minimally invasive posterior lateral decompression and fusion with transforaminal lumbar interbody fusion Low back pain Degenerative scoliosis L3-4 and L4-5 severe spinal stenosis Lumbar degenerative disc disease Lumbar facet arthritis Neurogenic claudication Lower extremity radiculopathy Hypertension Hyperlipidemia Type 1 diabetes Plan: 1. Ambulate as tolerated; work with Physical Therapy to increase mobilization 2. Continue pain control with IV and oral medications; will plan to begin weaning the patient off of IV narcotic medication in anticipation for discharge home in the next 1-2 days 3. Dressings to remain intact with Optifoam; patient may shower with dressings intact 4. Medical management can continue to manage patient for patient's other medical diagnoses 5. We will continue to follow the patient closely; depending on the patient's progress, we may plan for discharge home as early as tomorrow, 10/07/2022 6. Patient can follow-up with Vince Hoover PA-C or Dr. Leobardo Rogel at [facility] in 2-3 weeks following discharge
[2022-10-06] MEDS: traMADol 50 MG TAB PO PRN ×2 (12:28→19:58)
[2022-10-06] MEDS: ALPRAZolam 0.5 MG TAB PO SCH (20:44)
[2022-10-06] MEDS: TOPIRAMATE 25 MG TAB PO SCH (20:44)
[2022-10-06] MEDS: GABAPENTIN 300 MG CAP PO SCH (20:44)
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
[2022-10-07] MEDS: HYDROcodone/APAP 5-325MG 1 EACH TAB PO PRN ×5 (01:25→20:52)
[2022-10-07] MEDS: LACTATED RINGERS 1,000 ML IV SCH (04:25)
[2022-10-07] MEDS: SODIUM CHLORIDE 0.9% 1,000 ML IV SCH ×2 (04:26→08:23)
[2022-10-07] MEDS: traMADol 50 MG TAB PO PRN ×4 (04:44→17:02)
[2022-10-07] MEDS: CYCLOBENZAPRINE 10 MG TAB PO PRN ×3 (04:44→17:02)
[2022-10-07] MEDS: SENNOSIDES-DOCUSATE SODIUM 1 EACH TAB PO SCH (08:24)
[2022-10-07] MEDS: ATORVASTATIN 10 MG TAB PO SCH (08:24)
[2022-10-07] MEDS: lisinopriL 20 MG TAB PO SCH (08:24)
[2022-10-07] MEDS: INSULIN LISPRO (For Pump) 100 UNIT/ML VIAL SQ-PUMP SCH ×2 (08:35→11:16)
--- NOTE | 2022-10-07 10:47 | P.PN ---
Progress Note - Text Progress Note Date: 10/07/22 Orthopedic Spine History of present illness: Patient is a pleasant 67-year-old female who is seen and examined at the bedside following posterior lateral decompression and fusion performed Sunday. She was having significant pain postoperatively and continues to have some pain, but her pain has been improving still she has had some improvement as compared to yesterday. She has been receiving oral hydrocodone and Ultram regularly for pa in control. She does have some pain in her lumbar spine and also some increased leg spasms during ambulation. She states the spasms in her lower extremities is most significant during ambulation. She has been able to ambulate to the restroom and assistance of a walker. She is urinating frequently and without difficulty. She denies any abdominal pain or distention. She is passing gas. She currently denies any specific lower extremity weakness or radiculopathy bilaterally. She is hoping to improve over the next 1-2 days so hopefully she can be discharged home. She requests medications to be sent to the [facility] pharmacy located within [facility]. Medicines were sent to the pharmacy yesterday. Currently does not complain of nausea, vomiting, fever, or chills. Patient is eating without difficulty. Patient continues to be seen in exam by medicine for her other medical diagnoses including hypertension, hyperlipidemia, and type 1 diabetes. Physical Exam Lumbar Fusion: Status post surgical day number 3 Patient is awake, alert, and oriented 3 Vital signs stable Good chest excursion with deep inspiration and expiration Abdomen soft nontender Dorsiflexion, plantarflexion, and extensor hallucis longus positive sustained bilaterally No signs or symptoms of DVT; no calf pain; pneumatic cuffs not currently intact bilateral lower extremities Calves are soft nontender bilaterally Optifoam dressings are removed during physical examination No active drainage from the surgical sites of the lumbar spine over the right iliac crest Some bruising around the surgical sites of the lumbar spine and iliac crest Dressing is reapplied over the surgical site of the lumbar spine with nonstick Telfa and Tegaderm Neurovascularly intact bilaterally lower extremities Assessment: Status post L3-4 and L4-5 minimally invasive posterior lateral decompression and fusion with transforaminal lumbar interbody fusion Low back pain Degenerative scoliosis L3-4 and L4-5 severe spinal stenosis Lumbar degenerative disc disease Lumbar facet arthritis Neurogenic claudication Lower extremity radiculopathy Hypertension Hyperlipidemia Type 1 diabetes Plan: 1. Ambulate as tolerated; work with Physical Therapy to increase mobilization; she is encouraged to continue utilizing a walker to aid in ambulation; patient does have a walker at home 2. Continue pain control with oral medications with hydrocodone and Ultram. Patient may also continue cyclobenzaprine as prescribed as needed for muscle spa sm. 3. Dressings have been changed to nonstick Telfa and Tegaderm. Patient may shower with dressing is intact. 4. Medical management can continue to manage patient for patient's other medical diagnoses 5. We will continue to follow the patient closely; depending on the patient's progress, we may plan for discharge home as early as tomorrow, 10/08/2022 6. Patient can follow-up with Vince Hoover PA-C or Dr. Leobardo Rogel at [facility] in 2-3 weeks following discharge
[2022-10-07] MEDS: TOPIRAMATE 25 MG TAB PO SCH (20:52)
[2022-10-07] MEDS: ALPRAZolam 0.5 MG TAB PO SCH (20:52)
[2022-10-07] MEDS: GABAPENTIN 300 MG CAP PO SCH (20:52)
[2022-10-08] MEDS: LACTATED RINGERS 1,000 ML IV SCH (03:13)
[2022-10-08] MEDS: traMADol 50 MG TAB PO PRN ×2 (04:31→11:27)
[2022-10-08] MEDS: CYCLOBENZAPRINE 10 MG TAB PO PRN ×2 (04:31→11:28)
[2022-10-08] MEDS: lisinopriL 20 MG TAB PO SCH (07:34)
[2022-10-08] MEDS: SENNOSIDES-DOCUSATE SODIUM 1 EACH TAB PO SCH (07:34)
[2022-10-08] MEDS: HYDROcodone/APAP 5-325MG 1 EACH TAB PO PRN ×2 (07:34→13:27)
[2022-10-08] MEDS: ATORVASTATIN 10 MG TAB PO SCH (07:35)
[2022-10-08] MEDS: SODIUM CHLORIDE 0.9% 1,000 ML IV SCH (07:49)
[2022-10-08 07:53] VITALS: RESP 18
--- NOTE | 2022-10-08 10:30 | P.DS ---
Providers Date of admission: 10/05/22 07:29 Expected date of discharge: 10/08/22 Attending physician: Alia Rogel Consults: 10/04/22 11:35 Consult Physician Routine Consulting Provider: Benny Nielson Consult Reason/Comments: Medical management Do you want consulting provider notified?: Yes Primary care physician: Kalie Gonsales - Discharge Diagnosis(es) (1) Status post lumbar spinal fusion Current Visit: Yes Status: Acute (2) Lumbar back pain with radiculopathy affecting lower extremity Current Visit: Yes Status: Acute (3) Neurogenic claudication due to lumbar spinal stenosis Current Visit: Yes Status: Acute (4) Lumbar facet arthropathy Current Visit: Yes Status: Acute (5) Lumbar degenerative disc disease Current Visit: Yes Status: Acute (6) Hypertension Current Visit: Yes Status: Acute (7) Type 1 diabetes mellitus Current Visit: Yes Status: Acute (8) Hyperlipidemia Current Visit: Yes Status: Acute Hospital Course: This is a pleasant 67-year-old female who presented with L3-4 and L4-5 severe spinal stenosis, lumbar degenerative disc disease, lumbar facet arthritis, low back pain with lower extremity radiculopathy, and neurogenic claudication who failed outpatient conservative therapy. She was admitted for an L3-4 and L4-5 minimally invasive posterior lateral decompression and fusion with transforaminal lumbar interbody fusion. Initially she was progressing slowly. She has continued to have significant improvement over the last couple days. Her pain is being much better controlled with oral medications including hydrocodone and Ultram. She has been able to discontinue IV Dilaudid. She is ambulating better with the assistance of a walker. She does have a walker at home. She is not currently experiencing any lower extremity weakness or radiculopathy specifically of the lower extremities. She does have some increased lower extremity leg spasms with ambulation. She has continuous cyclobenzaprine as prescribed as needed for muscle spasm. Patient feels she is ready for discharge today. Condition on day of discharge stable. Patient will be discharged home. Patient was cleared preoperatively for surgery by Dr. Gonsales. Patient currently denies any nausea, vomiting, fever, or chills. Patient is eating and voiding freely without difficulty. Patient may shower Tegaderm dressings intact. Patient may remove Tegaderm dressing in 3 days and shower without a dressing at that time. Patient should refrain from driving until at least after their first follow-up appointment in the office. Patient should avoid excessive bending, lifting, and twisting; no lifting greater than 10 pounds. Patient is encouraged to utilize a walker to aid in ambulation as needed. MAPS was reviewed today, 10/08/2022, with the overall overdose risk or of 190. An "Opiod Start Talking" Form has been signed and placed in the patient's chart. Prescription medications were previously sent to the [facility] pharmacy located within [facility]. [facility]. We will plan to prescribe new prescriptions and will send them to the [facility] pharmacy in [place], [place] per request of the patient. Prescriptions are sent to [facility] pharmacy in [place], [place] for hydrocodone 5 mg/325 mg 1 tab every 4 hours as needed for pain, dispense #42, cyclobenzaprine 10 mg 1 tab 3 times a day as needed for muscle spasm, dispensed #60, Ultram 50 mg 1 tab every 6 hours as needed for pain, dispensed #28, and Senokot-S 1 tab twice a day as needed for constipation, dispensed #60. Patient's other medical diagnoses include hypertension, hyperlipidemia, and type 1 diabetes. Physical Exam on day of discharge: Status post surgical day number 4 Patient is awake, alert, and oriented 3 Vital signs stable Good chest excursion with deep inspiration and expiration Dorsiflexion, plantarflexion, and extensor hallucis longus positive sustained bilaterally No signs or symptoms of DVT; no calf pain; pneumatic cuffs not currently intact bilateral lower extremities Optifoam dressings remain intact over the lumbar spine and right iliac crest Neurovascularly intact bilaterally lower extremities Procedures: L3-4 and L4-5 minimally invasive posterior lateral decompression and fusion with transforaminal lumbar interbody fusion Patient Condition at Discharge: Stable Plan - Discharge Summary Discharge Rx Participant: No New Discharge Prescriptions: New Cyclobenzaprine [Flexeril] 10 mg PO TID PRN #60 tab PRN Reason: Muscle Spasm HYDROcodone/APAP 5-325MG [[place] 5] 1 each PO Q4HR PRN #42 tab PRN Reason: Pain Sennosides-Docusate Sodium [Senokot-S] 1 tab PO BID PRN #60 tablet PRN Reason: Constipation traMADol HCl [Ultram] 50 mg PO Q6H PRN #28 tab PRN Reason: Pain No Action ramipriL [Altace] 5 mg PO QAM Simvastatin [Zocor] 60 mg PO QAM traMADol HCl [Ultram] 50 mg PO QID PRN PRN Reason: Pain INSULIN LISPRO (For Pump) [humaLOG (For Pump)] See Protocol SQ-PUMP CONTINUOUS Gabapentin [Neurontin] 300 mg PO HS Topiramate [Topamax] 50 mg PO HS Diclofenac Sodium/Misoprostol [Arthrotec 75 mg-200 Mcg Tab] 1 each PO AC- BRKFST ALPRAZolam [Xanax] 0.5 mg PO HS Discharge Medication List Simvastatin [Zocor] 60 mg PO QAM 02/12/16 [History] ramipriL [Altace] 5 mg PO QAM 02/12/16 [History] traMADol HCl [Ultram] 50 mg PO QID PRN 02/12/16 [History] Gabapentin [Neurontin] 300 mg PO HS 11/09/17 [History] INSULIN LISPRO (For Pump) [humaLOG (For Pump)] See Protocol SQ-PUMP CONTINUOUS 11/09/17 [History] Topiramate [Topamax] 50 mg PO HS 06/14/18 [History] ALPRAZolam [Xanax] 0.5 mg PO HS 09/28/22 [History] Diclofenac Sodium/Misoprostol [Arthrotec 75 mg-200 Mcg Tab] 1 each PO AC-BRKFST 09/28/22 [History] Cyclobenzaprine [Flexeril] 10 mg PO TID PRN #60 tab 10/08/22 [Rx] HYDROcodone/APAP 5-325MG [[place] 5] 1 each PO Q4HR PRN #42 tab 10/08/22 [Rx] Sennosides-Docusate Sodium [Senokot-S] 1 tab PO BID PRN #60 tablet 10/08/22 [Rx] traMADol HCl [Ultram] 50 mg PO Q6H PRN #28 tab 10/08/22 [Rx] Follow up Appointment(s)/Referral(s): Vince Hoover, CHANELLE [PHYSICIAN [employer]KEIN W[employer]ER] - 2 Weeks (Patient may follow-up with Vince Hoover PA-C or Dr. Leobardo Rogel at [facility] in 2-3 weeks following discharge. ) [facility] [NON-STAFF] - As Needed Activity/Diet/Wound Care/Special Instructions: 1. Patient may shower with Tegaderm dressing intact. 2. Patient may remove Tegaderm dressing in 3 days and shower without a dressing at that time. 3. Patient should refrain from driving until at least after their first follow- up appointment in the office. 4. Patient should avoid excessive bending, twisting, lifting; avoid overhead lifting; no lifting greater than 10 pounds 5. Take medications as prescribed 6. Patient should avoid anti-inflammatory medications over the next 6 weeks postoperatively 7. Do not soak in tub 8. Patient is encouraged to utilize a walker to aid in ambulation Discharge Disposition: HOME SELF-CARE
[2022-10-08] MEDS: INSULIN LISPRO (For Pump) 100 UNIT/ML VIAL SQ-PUMP SCH (12:27)
[2022-10-08 14:52] VITALS: BP 119/73; PULSE 89; TEMP 98.1
== END 2022-10-08 15:45 | disposition home or self-care (01) ==
LOC: OR 06:07 → 4SSUR 11:38 → OR 10-05 07:29
PROVIDERS: ADMIT Orthopaedic Surgery Orthopaedic Surgery of the Spine; ATTEND Orthopaedic Surgery Orthopaedic Surgery of the Spine
DX: M48.062 Spinal stenosis, lumbar region with neurogenic claudication (principal); M41.56 Other secondary scoliosis, lumbar region; M51.16 Intervertebral disc disorders with radiculopathy, lumbar region; M47.26 Other spondylosis with radiculopathy, lumbar region; M85.88 Other specified disorders of bone density and structure, other site; I10 Essential (primary) hypertension; E78.5 Hyperlipidemia, unspecified; J45.909 Unspecified asthma, uncomplicated; G89.4 Chronic pain syndrome; E10.9 Type 1 diabetes mellitus without complications; Z96.41 Presence of insulin pump (external) (internal); Z79.4 Long term (current) use of insulin; Z87.891 Personal history of nicotine dependence; Z83.3 Family history of diabetes mellitus; Z82.49 Family history of ischemic heart disease and other diseases of the circulatory system
CPT/HCPCS: 96376; 96361 ×2; 96374; 94760 ×2; 97116 ×2; 97161; 86900; 86901; 80048; 85025 ×3; 85610; 85730; 86850; 81001; 72100; 22612; 22614; 22853 ×2; 20930; 20936; G0378 ×4; C1713 ×2; C1762; J2250; J0330; J2710; J0690 ×3; J2405; J3010; J1170 ×4; J2370; J2704; J2001

== ENCOUNTER 2023-09-04 13:34 | Emergency (ER) | payer MEDICARE ==
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
--- NOTE | 2023-09-04 14:45 | XR ---
EXAMINATION TYPE: XR knee complete LT DATE OF EXAM: 09/04/2023 2:31 PM INDICATION: Patient age:Female; 68 years old; Reason for study: pain; PHH. COMPARISON: None. TECHNIQUE: The Left knee(s) was examined in Frontal, lateral and oblique projections. FINDINGS: No acute fracture or dislocation. Mild medial tibiofemoral joint space narrowing. No spurri ng identified. No joint effusion or soft tissue swelling. Vascular sclerosis. IMPRESSION: No acute osseous pathology.
--- NOTE | 2023-09-04 15:30 | US ---
EXAMINATION TYPE: US venous doppler duplex LE LT DATE OF EXAM: 09/04/2023 3:21 PM COMPARISON: NONE CLINICAL INDICATION: Female, 68 years old with history of pain; Pain left knee SIDE PERFORMED: Left TECHNIQUE: The lower extremity deep venous system is examined utilizing real time linear array sonog az with graded compression, doppler sonography and color-flow sonography. VESSELS IMAGED: Common Femoral Vein Deep Femoral Vein Greater Saphenous Vein * Femoral Vein Popliteal Vein Small Saphenous Vein * Proximal Calf Veins (* superficial vessels) Left Leg: Negative for DVT, fluid collection left medial knee= 4.6 x 1.1 x 2.2 cm IMPRESSION: 1. No diagnostic evidence of DVT. There is a fluid collection measuring 4.6 cm most typical of poplit eal fossa cyst. Consider MRI follow-up.
[2023-09-04 16:14] VITALS: BP 139/75; PULSE 62; RESP 17; TEMP 98.6
== END 2023-09-04 17:01 | disposition home or self-care (01) ==
LOC: EC 13:34
DX: M71.22 Synovial cyst of popliteal space [Baker], left knee (principal); M17.12 Unilateral primary osteoarthritis, left knee; E11.9 Type 2 diabetes mellitus without complications; I10 Essential (primary) hypertension; J45.909 Unspecified asthma, uncomplicated; F32.A Depression, unspecified; Z79.4 Long term (current) use of insulin; Z79.899 Other long term (current) drug therapy; Z87.891 Personal history of nicotine dependence
CPT/HCPCS: 99284

== ENCOUNTER → 2024-04-16 | Outpatient (CLI) | payer MEDICARE ==
[2024-04-16 18:32] LABS: C-Peptide 0.03 ng/mL (0.81-3.85)
== END | disposition home or self-care (01) ==
LOC: LABWHC1 09:58
PROVIDERS: ATTEND Internal Medicine
DX: E10.65 Type 1 diabetes mellitus with hyperglycemia (principal)
CPT/HCPCS: 36415; 82947; 84681